=== PATIENT | female | born 1995 | race Caucasian/White ===

== ENCOUNTER 2018-01-26 | Emergency (ER) | payer MEDICAID, SELFPAY ==
[2018-01-26] MEDS ORDERED: Lorazepam 2 MG/ML VIAL ONE (00:18)
== END 2018-01-26 01:43 | disposition home or self-care (01) ==
LOC: NAV ERS
DX: F41.9 Anxiety disorder, unspecified (principal); J45.909 Unspecified asthma, uncomplicated; F25.9 Schizoaffective disorder, unspecified; F60.9 Personality disorder, unspecified; F17.210 Nicotine dependence, cigarettes, uncomplicated
CPT/HCPCS: 96372; J2060

== ENCOUNTER 2018-03-18 14:00 | Emergency (ER) | payer SELFPAY ==
[2018-03-18] MEDS ORDERED: methylPREDNISolone Sod Succ/PF 125 MG/2 ML VIAL ONE (14:46)
== END 2018-03-18 15:00 | disposition home or self-care (01) ==
LOC: NAV ERS 14:00
DX: J02.9 Acute pharyngitis, unspecified (principal); J45.909 Unspecified asthma, uncomplicated; F25.9 Schizoaffective disorder, unspecified; F90.9 Attention-deficit hyperactivity disorder, unspecified type; F17.210 Nicotine dependence, cigarettes, uncomplicated
CPT/HCPCS: 96372; J2930

== ENCOUNTER 2018-10-28 21:17 | Emergency (ER) | payer SELFPAY | END 2018-10-28 21:41 | disposition home or self-care (01) | LOC: NAV ERS 21:17 | DX: M79.672 Pain in left foot (principal); J45.909 Unspecified asthma, uncomplicated; F25.9 Schizoaffective disorder, unspecified; F90.9 Attention-deficit hyperactivity disorder, unspecified type; F17.210 Nicotine dependence, cigarettes, uncomplicated | CPT/HCPCS: 99281 ==

== ENCOUNTER 2019-12-26 22:05 | Outpatient (CLI) | payer OTHER ==
[2019-12-26 22:27] LABS: BHCG - Serum POSITIVE (NEGATIVE); Pregs Control Bar Appear? YES (CONTROL BAR)
== END 2019-12-26 22:06 | disposition home or self-care (01) ==
LOC: NAV LAB 22:05
PROVIDERS: ATTEND Pathology Anatomic Pathology & Clinical Pathology
DX: Z00.00 Encounter for general adult medical examination without abnormal findings (principal)
CPT/HCPCS: 84703

== ENCOUNTER 2020-01-16 20:54 | Emergency (ER) | payer MEDICAID, SELFPAY ==
[2020-01-16 21:26] LABS: Bilirubin Negative (Negative); Blood, Urine Small (Negative); Clarity Clear (Clear); Glucose, Urine (Dipstick) Negative (Negative); Leukocyte Small (Negative); Nitrite Negative (Negative); Protein, Urine (Dipstick) Negative (Neg-Trace); Urobilinogen 0.2 mg/dL (Less than 2)
[2020-01-16 21:32] LABS: Bacteria/HPF Rare-Few HPF (None Seen); WBC/HPF 0-3 HPF (0-3)
[2020-01-16] MEDS ORDERED: Cephalexin 250 MG CAP ONE (21:44)
== END 2020-01-16 21:50 | disposition home or self-care (01) ==
LOC: NAV ERS 20:54
DX: O23.41 Unspecified infection of urinary tract in pregnancy, first trimester (principal); O99.511 Diseases of the respiratory system complicating pregnancy, first trimester; J45.909 Unspecified asthma, uncomplicated; O99.341 Other mental disorders complicating pregnancy, first trimester; F25.9 Schizoaffective disorder, unspecified; O99.331 Smoking (tobacco) complicating pregnancy, first trimester; F17.210 Nicotine dependence, cigarettes, uncomplicated; Z3A.08 8 weeks gestation of pregnancy
CPT/HCPCS: 81003; 81015; 87086; 99284